=== PATIENT | female | born 1970 | race Caucasian/White ===

== ENCOUNTER 2017-08-12 08:53 | Emergency (ER) | payer MEDICAID ==
[~2017-08-12] VITALS: Ht 160 cm; Wt 55.0 kg
[2017-08-12 10:00] VITALS: BP 121/75
[2017-08-12] MEDS ORDERED: METHYLPREDNISOLONE SOD SUCC 125 MG/2 ML VIAL IM ONE (10:00)
== END 2017-08-12 10:15 | disposition home or self-care (01) ==
LOC: ER 09:54
DX: L50.9 Urticaria, unspecified (principal)
CPT/HCPCS: 96372; 99283; J2930; Z7610

== ENCOUNTER 2018-01-01 05:41 | Emergency (ER) | payer MEDICAID ==
[~2018-01-01] VITALS: Ht 157.5 cm; Wt 75.0 kg
[2018-01-01] MEDS ORDERED: IBUPROFEN 600MG TABLET PO ONE (06:45)
[2018-01-01] MEDS ORDERED: METHOCARBAMOL 500MG TABLET PO ONE (06:45)
[2018-01-01 08:12] VITALS: BP 102/58
== END 2018-01-01 09:00 | disposition home or self-care (01) ==
LOC: ER 06:05
DX: M26.622 Arthralgia of left temporomandibular joint (principal); R05 Cough
CPT/HCPCS: 81025; 99283; Z7610

== ENCOUNTER 2019-01-19 17:08 | Emergency (ER) | payer SELFPAY ==
[~2019-01-19] VITALS: Ht 152.4 cm; Wt 79.0 kg
[2019-01-19] MEDS ORDERED: IBUPROFEN 600MG TABLET PO STA (19:01)
[2019-01-19 21:47] VITALS: BP 139/87
== END 2019-01-19 21:50 | disposition home or self-care (01) ==
LOC: ER 17:08
DX: S52.91XA Unspecified fracture of right forearm, initial encounter for closed fracture (principal); W01.0XXA Fall on same level from slipping, tripping and stumbling without subsequent striking against object, initial encounter; Y93.89 Activity, other specified; Y92.89 Other specified places as the place of occurrence of the external cause; Y99.8 Other external cause status
CPT/HCPCS: 73090; 73110; 81025; 99283; A4565

== ENCOUNTER 2019-04-18 07:15 | Emergency (ER) | payer MEDICAID ==
[~2019-04-18] VITALS: Ht 154.9 cm; Wt 75.0 kg
[2019-04-18] MEDS ORDERED: IBUPROFEN 600MG TABLET PO ONE (09:45)
[2019-04-18 10:30] VITALS: BP 130/70
== END 2019-04-18 10:31 | disposition home or self-care (01) ==
LOC: ER 07:15
DX: J06.9 Acute upper respiratory infection, unspecified (principal)
CPT/HCPCS: 87804; 99283

== ENCOUNTER 2021-10-13 08:57 | Emergency (ER) | payer MEDICAID ==
[~2021-10-13] VITALS: Ht 152.4 cm; Wt 78.0 kg
[2021-10-13 09:01] VITALS: BP 142/67
[2021-10-13] MEDS ORDERED: IBUPROFEN 600MG TABLET PO ONE (09:30)
[2021-10-13] MEDS ORDERED: IBUP-2029 MT (09:53)
== END 2021-10-13 10:12 | disposition home or self-care (01) ==
LOC: ER 08:57
DX: M79.671 Pain in right foot (principal)
CPT/HCPCS: 73630; 81025; 99283

== ENCOUNTER 2022-03-18 06:17 | Emergency (ER) | payer MEDICAID ==
[~2022-03-18] VITALS: Ht 154.9 cm; Wt 77.0 kg
[~2022-03-18 06:17] MED LIST: IBUP-2029 MT
[2022-03-18 06:26] VITALS: BP 138/79
[2022-03-18] MEDS ORDERED: NAP5EC MT (09:37)
== END 2022-03-18 10:11 | disposition home or self-care (01) ==
LOC: ER 06:17
DX: M79.621 Pain in right upper arm (principal)
CPT/HCPCS: 99282

== ENCOUNTER 2023-03-27 21:43 | Emergency (ER) | payer MEDICAID ==
[~2023-03-27] VITALS: Ht 152.4 cm; Wt 75.0 kg
[~2023-03-27 21:43] MED LIST changes: +NAP5EC MT
[2023-03-27 21:54] VITALS: BP 131/72; O2SAT 98
[2023-03-28 00:01] LABS: BASOPHILS % 0.4 % (0.0-2.0); EOSINOPHILS % 2.2 % (0.0-5.0); HEMATOCRIT. 41.9 % (36.0-48.0); HEMOGLOBIN. 14.1 g/dL (12.0-16.0); LYMPHOCYTES % 43.4 % (20.0-50.0); MEAN CORPUSCULAR HEMOGLOBIN 31.4 pg (28.0-32.0); MEAN CORPUSCULAR HGB CONC 33.6 g/dL (31.0-37.0); MEAN CORPUSCULAR VOLUME 93.4 fL (81.0-99.0); MONOCYTES % 9.8 % (2.0-8.0); NEUTROPHILS % 44.2 % (40.0-76.0); PLATELET 228 x1000/uL (130-400); RED BLOOD CELL COUNT 4.48 mill/uL (4.2-5.4); RED CELL DISTRIBUTION WIDTH 12.5 % (11.6-14.6); WHITE BLOOD COUNT 8.3 x1000/uL (4.5-11.0)
[2023-03-28 00:10] LABS: PROTHROMBIN TIME 10.3 sec (9.6-11.0)
[2023-03-28 00:17] LABS: ALANINE AMINOTRANSFERASE 17 IU/L (10-49); ALBUMIN 4.1 g/dL (3.2-4.8); ASPARTATE AMINOTRANSFERASE 18 IU/L (<34); BILIRUBIN TOTAL 0.4 mg/dL (0.1-1.0); CALCIUM 9.1 mg/dL (8.7-10.4); CARBON DIOXIDE 27 mEq/L (21-32); CHLORIDE 106 mEq/L (98-107); CREATININE 0.8 mg/dL (0.6-1.0); GLUCOSE 87 mg/dL (70-105); POTASSIUM 4.3 mEq/L (3.5-5.1); PROTEIN TOTAL 7.5 g/dL (6.0-8.3); SODIUM 138 mEq/L (136-145); UREA NITROGEN BLOOD 15 mg/dL (9-23)
[2023-03-28 00:23] LABS: TROPONIN I HIGH SENSITIVITY < 4 ng/L (3.0-34)
[2023-03-28 01:22] VITALS: PULSE 63; RESP 16; TEMP 98.4
== END 2023-03-28 01:24 | disposition home or self-care (01) ==
LOC: ER 21:43
DX: R07.89 Other chest pain (principal); M79.602 Pain in left arm
CPT/HCPCS: 36415; 71045; 73060; 80053; 84484; 85025; 93005; 99285